=== PATIENT | female | born 1990 | race Caucasian/White ===

== ENCOUNTER 2018-01-03 08:47 | Emergency (ER) | payer MEDICAID ==
[~2018-01-03] VITALS: Ht 154.9 cm; Wt 50.0 kg
[2018-01-03 10:00] VITALS: BP 104/71
== END 2018-01-03 10:46 | disposition home or self-care (01) ==
LOC: ER 08:48
DX: R07.2 Precordial pain (principal); R00.2 Palpitations; R20.2 Paresthesia of skin
CPT/HCPCS: 71046; 93005; 99284

== ENCOUNTER 2018-05-04 14:32 | Emergency (ER) | payer MEDICAID ==
[~2018-05-04] VITALS: Ht 154.9 cm; Wt 47.7 kg
[2018-05-04 16:54] VITALS: BP 98/64
== END 2018-05-04 16:49 | disposition home or self-care (01) ==
LOC: ER 14:33
DX: R42 Dizziness and giddiness (principal); F41.9 Anxiety disorder, unspecified
CPT/HCPCS: 70450; 93005; 99284